=== PATIENT | male | born 1980 | race Two or more races ===

== ENCOUNTER 2025-02-18 22:30 | Emergency (ER) | payer MEDICAID, OTHER ==
[~2025-02-18] VITALS: Ht 180.3 cm; Wt 72.6 kg
[2025-02-19 02:12] VITALS: BP 99/68; TEMP 98.2; O2SAT 98
== END 2025-02-19 02:13 | disposition home or self-care (01) ==
LOC: ER 22:33
DX: F10.129 Alcohol abuse with intoxication, unspecified (principal); R07.9 Chest pain, unspecified; Y90.9 Presence of alcohol in blood, level not specified